=== PATIENT | male | born 1950 | race Caucasian/White ===

== ENCOUNTER 2021-11-14 07:25 | Emergency (ER) | payer SELFPAY ==
[2021-11-14] MEDS ORDERED: Rocuronium 100 MG/10 ML MDV IV ONE (07:38)
[2021-11-14] MEDS ORDERED: fentaNYL 100 MCG/2 ML SDV ONE (07:40)
[2021-11-14] MEDS ORDERED: Midazolam 5 MG/ML SDV ONE (07:40)
[2021-11-14] MEDS ORDERED: Sodium Chloride 0.9% 1,000 ML IV ONE (07:42)
[2021-11-14] MEDS ORDERED: Midazolam 1 MG/ML 2 ML SDV ONE ×2 (07:42→09:21)
[2021-11-14 08:11] LABS: BLOOD UREA NITROGEN,BUN 21 mg/dL (7.0-18.0); CARBON DIOXIDE,CO2 26.2 mmol/L (21.0-32.0); CHLORIDE,CL 103 mmol/L (98-107); GLUCOSE RANDOM 126 mg/dL (74-106); POTASSIUM,K 3.8 mmol/L (3.5-5.1); SODIUM,NA 138 mmol/L (136-148)
[2021-11-14] MEDS ORDERED: Midazolam 1 MG/ML 2 ML SDV IVPUSH ONE (08:18)
[2021-11-14] MEDS ORDERED: fentaNYL 50 MCG/ML SDV IVPUSH ONE (08:19)
[2021-11-14] MEDS ORDERED: Etomidate 2 MG/ML 20 ML SDV IVPUSH ONE (08:20)
[2021-11-14 08:25] LABS: ESTIMATED GFR 49 mL/min (>60)
[2021-11-14] MEDS ORDERED: Naloxone 0.4 MG/ML SDV IVPUSH ONE (08:45)
[2021-11-14] MEDS: WATER IV STA ×4 (09:16→09:41)
[2021-11-14] MEDS: LEVETIRACETAM IV STA ×4 (09:16→09:41)
[2021-11-14] MEDS: DEXTROSE 5% IV STA ×4 (09:16→09:41)
[2021-11-14] MEDS ORDERED: fentaNYL/Normal Saline 2,500 MCG in Premix Bag 1 BAG IV PRN (09:24)
[2021-11-14] MEDS ORDERED: fentaNYL 2,500 MCG in Sodium Chloride 0.9% 200 ML IV PRN (09:32)
[2021-11-14] MEDS ORDERED: LEVETIRACETAM IV STA ×2 (09:33)
[2021-11-14] MEDS ORDERED: DEXTROSE 5% IV STA ×2 (09:33)
[2021-11-14] MEDS ORDERED: WATER IV STA ×2 (09:33)
[2021-11-14] MEDS ORDERED: Aspirin 81 MG Tab.Chew PO ONE (09:58)
[2021-11-14] MEDS ORDERED: Heparin Sodium 5,000 Units/ML Vial IVPUSH ONE (09:58)
[2021-11-14] MEDS ORDERED: Heparin Sodium/0.45% NaCl 500 ML IV SCH ×2 (10:00→10:45)
[2021-11-14] MEDS ORDERED: Tenecteplase 50 MG Kit IV ONE (10:13)
[2021-11-14] MEDS ORDERED: Tenecteplase 50 MG Kit ONE (10:14)
[2021-11-16] MEDS ORDERED: Midazolam 1 MG/ML 2 ML SDV IVPUSH ONE (19:55)
== END 2021-11-14 13:14 ==
LOC: MW.ED 07:25
DX: I21.3 ST elevation (STEMI) myocardial infarction of unspecified site (principal); Z79.899 Other long term (current) drug therapy; Z20.822 Contact with and (suspected) exposure to COVID-19
CPT/HCPCS: 31500; 36415; 70450; 71045; 80053; 80305; 80307; 81001; 83605; 83735; 84443; 84484; 85025; 85610; 85730; 87040; 87635; 92977; 93005; 96361; 96365; 96366; 96367; 96368; 96375; 96376; 99285; A9270; J1644; J1953; J2250; J2310; J3010; J3101; J3490; J7030; J7050; J7060; U0002